=== PATIENT | female | born 1945 | race Caucasian/White ===

== ENCOUNTER → 2016-08-27 | Outpatient (CLI) | payer MEDICARE ==
--- NOTE | 2016-08-28 09:17 | MM ---
Reason for exam: screening (asymptomatic). Last mammogram was performed 1 year and 2 months ago. History: Patient is postmenopausal, has history of other cancer at age 54, and is nulliparous. Benign excisional biopsy of the left breast, 1991. Took estrogen for 18 years beginning at age 43. Physical Findings: A clinical breast exam by your physician is recommended on an annual basis and results should be correlated with mammographic findings. MG Screening Mammo w CAD Bilateral CC and MLO view(s) were taken. Prior study comparison: July 07, 2015, bilateral MG 3d screening mammo w/cad. July 05, 2014, bilateral MG screening mammo w CAD. The breast tissue is heterogeneously dense. This may lower the sensitivity of mammography. Benign calcifications. There is no discrete abnormality. No significant changes when compared with prior studies. ASSESSMENT: Benign, BI-RAD 2 RECOMMENDATION: Routine screening mammogram of both breasts in 1 year.
== END | disposition home or self-care (01) ==
LOC: RADMAMWWP 16:35
PROVIDERS: ATTEND Internal Medicine
DX: Z12.31 Encounter for screening mammogram for malignant neoplasm of breast (principal)

== ENCOUNTER → 2017-09-09 | Outpatient (CLI) | payer MEDICARE ==
--- NOTE | 2017-09-11 09:55 | MM ---
Reason for exam: screening (asymptomatic). Last mammogram was performed 1 year ago. History: Patient is postmenopausal, has history of other cancer at age 54, and is nulliparous. Benign excisional biopsy of the left breast, 1991. Took estrogen for 18 years beginning at age 43. Physical Findings: A clinical breast exam by your physician is recommended on an annual basis and results should be correlated with mammographic findings. MG 3D Screening Mammo W/Cad Bilateral CC and MLO view(s) were taken. Prior study comparison: August 27, 2016, bilateral MG screening mammo w CAD. July 07, 2015, bilateral MG 3d screening mammo w/cad. There are scattered fibroglandular densities. No significant changes when compared with prior studies. ASSESSMENT: Negative, BI-RAD 1 RECOMMENDATION: Routine screening mammogram of both breasts in 1 year.
== END ==
LOC: RADMAMWWP 13:18
PROVIDERS: ATTEND Internal Medicine
DX: Z12.31 Encounter for screening mammogram for malignant neoplasm of breast (principal)
CPT/HCPCS: 77063; 77067

== ENCOUNTER → 2018-08-21 | Outpatient (CLI) | payer MEDICARE ==
--- NOTE | 2018-08-21 10:59 | NM ---
"EXAMINATION TYPE: NM stress cardiolite complete DATE OF EXAM: 08/21/2018 COMPARISON: Prior exam dated 09/12/2014 HISTORY: Chest pain TECHNIQUE: After the intravenous administration of 10.6 mCi Tc 99m Sestamibi - Rest images obtained 45 minutes post injection. The patient exercised using a SUZETTE protocol and 1 minute prior to peak exercise was injected with 25.3 mCi Tc 99m Sestamibi - Stress images obtained 10 minutes post injecti on. FINDINGS: Targeted heart rate was achieved during performance of the study. Review of stress and rest SPECT shara ges demonstrates some mild decreased radio pharmaceutical uptake along the inferior wall left ventric le which is somewhat more reduced on stress as compared to rest imaging. Gated analysis shows normal wall motion with an estimated left ventricular ejection fraction of 71 %. IMPRESSION: Findings suggest some mild stress-induced left ventricular myocardial ischemia limited for wall left ventricle, correlate with echocardiographic studies for elevated ejection fraction A Yellow level critical message alert has been initiated for Bryn Argueta MD via the [employer] | Critical Results System on 08/21/2018 10:57 AM. This message alert has been sent to Bryn thomas MD via the preferences provided by the clinician for the receipt of Radiology Critical Findings. Message ID [id number]."
--- NOTE | 2018-08-21 19:47 | EST ---
EXERCISE STRESS AGE: 73 SEX: Female HT: 61" WT: 135 pounds PROTOCOL: Cardiolite Raf STAGE: II DURATION OF EXERCISE: 3:32 HEART RATE REST: 68 BLOOD PRESSURE REST: 166/75 MAXIMUM HEART RATE ACHIEVED: 135 MAXIMUM BLOOD PRESSURE: 264/91 85% MPHR: 124 100% MPHR: 146 METS: 5.2 INDICATIONS: Chest pain. CLINICAL INFORMATION: Baseline rhythm is a sinus mechanism, rate of 68, normal axis and intervals. Occasional PACs. Baseline blood pressure 166/75 mmHg. Patient exercised on Raf protocol for 3 minutes 32 seconds, achieving a peak rate of 135 beats per minute, which is equal to 92% of maximum predicted heart rate. Peak blood pressure 175/88 mmHg. Test was stopped because of fatigue and severe dyspnea. Electrocardiograph monitoring revealed no evidence of diagnostic ischemic ST deviation. Cardiolite was injected at peak exercise. CONCLUSION: 1. Decreased exercise tolerance with normal electrocardiograph response to exercise. 2. Nuclear images will be reported separately. MMODL / IJN: [id number] /
== END | disposition home or self-care (01) ==
LOC: RADNMMAIN 07:44
PROVIDERS: ATTEND Internal Medicine
DX: R07.9 Chest pain, unspecified (principal)
CPT/HCPCS: 93017; 78452; A9500

== ENCOUNTER → 2018-09-07 | Outpatient (CLI) | payer MEDICARE ==
[2018-09-07 17:12] LABS: HCT 43.3 % (34.0-46.0); HGB 13.9 gm/dL (11.4-16.0); MCH 29.2 pg (25.0-35.0); MCV 91.1 fL (80.0-100.0); Mean Platelet Volume 7.4; Platelet Count 231 k/uL (150-450); RBC 4.76 m/uL (3.80-5.40); RDW 14.5 % (11.5-15.5); WBC 6.2 k/uL (3.8-10.6)
[2018-09-07 17:18] LABS: Potassium 4.4 mmol/L (3.5-5.1)
== END | disposition home or self-care (01) ==
LOC: LABPAT 16:13
PROVIDERS: ATTEND Internal Medicine Cardiovascular Disease
DX: Z01.812 Encounter for preprocedural laboratory examination (principal); R07.2 Precordial pain
CPT/HCPCS: 80051; 82565; 84520; 85027

== ENCOUNTER 2018-09-10 05:56 | Day surgery (SDC) | payer MEDICARE ==
[2018-09-08 10:46] VITALS: BMI 25.6
[~2018-09-10 05:56] MED LIST: ALPRAZolam 0.25 MG TAB PO PRN; ALPRAZolam 0.5 MG TAB PO PRN; NITROGLYCERIN SL TABS 0.4 MG TAB SUBLINGUAL PRN; SODIUM CHLORIDE 0.9% 1,000 ML in EMPTY BAG 1 BAG IV ONE
[2018-09-10] MEDS ORDERED: SODIUM CHLORIDE 0.9% 1,000 ML IV ONE (06:11)
[2018-09-10] MEDS ORDERED: ASPIRIN 325 MG TAB PO ONE (07:00)
[2018-09-10] MEDS ORDERED: ATORVASTATIN 80 MG TAB PO ONE (07:00)
[2018-09-10] MEDS ORDERED: ONDANSETRON 4 MG/2 ML VIAL ONE (07:57)
[2018-09-10] MEDS ORDERED: LIDOCAINE 1% INJ 10MG/ML (20 ML MDV) ONE (08:58)
[2018-09-10] MEDS ORDERED: fentaNYL (PF) 50 MCG/ML 2 ML AMP ONE (08:58)
[2018-09-10] MEDS: MIDAZOLAM (PF) 2 MG/2 ML VIAL IV ONE ×2 (09:20→10:10)
[2018-09-10] MEDS ORDERED: LIDOCAINE 1% INJ 10MG/ML (20 ML MDV) SQ ONE (09:20)
[2018-09-10] MEDS: fentaNYL (PF) 50 MCG/ML 2 ML AMP IV ONE ×2 (09:20→10:21)
--- NOTE | 2018-09-10 10:03 | CC ---
CARDIAC CATHETERIZATION REPORT INDICATION: Unstable angina. REFERRING PHYSICIAN: Dr. Argueta. Patient has chest pain with abnormal stress test showing ischemia in LAD distribution. PROCEDURE NOTE: After obtaining informed consent, left heart catheterization and coronary angiogram were performed via the right femoral artery using standard Tonia catheters. The patient tolerated the procedure well without any obvious immediate complications. Patient received moderate conscious sedation. Total sedation time was 18 minutes. FINDINGS: 1. HEMODYNAMICS: Left ventricular end-diastolic pressure is 16 to 18 mm. There is no significant gradient across the aortic valve. 2. LEFT VENTRICULOGRAM: Left ventriculogram is not performed. 3. ANGIOGRAPHIC DATA: Left Main Coronary Artery: Left main coronary artery is a normal-sized vessel and is free of stenosis. Divides into left anterior descending coronary artery and circumflex coronary artery. Both the left and right coronaries are calcified. Circumflex coronary artery is a nondominant vessel and is free of significant stenosis. LAD shows a 70% stenosis proximal to the origin of the diagonal branch. Diagonal branch itself shows a 70% to 80% stenosis. Right coronary artery is a large dominant vessel, appears calcified, but is free of significant stenosis. CONCLUSIONS: A 70% stenosis involving LAD proximal to the diagonal. The diagonal has a 70% to 80% stenosis. PLAN: Patient will undergo angioplasty of the LAD and diagonal by Dr. Gallardo the on-call electrical fitter. MMLUANNEL / KADENN: [id number] /
[2018-09-10] MEDS ORDERED: fentaNYL (PF) 50 MCG/ML 2 ML AMP IV ONE (10:10)
[2018-09-10] MEDS ORDERED: BIVALIRUDIN BOLUS 250 MG/50 ML IV ONE (10:20)
[2018-09-10] MEDS ORDERED: BIVALIRUDIN 250 MG in SODIUM CHLORIDE 0.9% 50 ML IV ONE (10:21)
[2018-09-10] MEDS ORDERED: NITROGLYCERIN 1000MCG/10ML SYRINGE INTRACORON ONE (10:27)
[2018-09-10] MEDS ORDERED: IOPAMIDOL-370 125ML BTL INJ ONE (10:29)
[2018-09-10] MEDS ORDERED: CLOPIDOGREL 75 MG TAB ONE (10:33)
[2018-09-10] MEDS ORDERED: CLOPIDOGREL 75 MG TAB PO ONE (10:37)
[2018-09-10] MEDS ORDERED: NITROGLYCERIN SL TABS 0.4 MG TAB SUBLINGUAL PRN ×2 (10:39→10:41)
[2018-09-10] MEDS ORDERED: PANTOPRAZOLE 40 MG TABLET PO PRN (10:39)
[2018-09-10] MEDS ORDERED: BACLOFEN 10 MG TAB PO PRN (10:39)
[2018-09-10] MEDS ORDERED: HYDROcodone/APAP 7.5-325MG 1 EACH TAB PO PRN (10:39)
[2018-09-10] MEDS ORDERED: ALBUTEROL NEBULIZED 2.5 MG/3 ML INHALATION PRN (10:39)
[2018-09-10] MEDS ORDERED: ATROPINE SULFATE 0.1 MG/ML 10ML SYRINGE IV PRN (10:41)
[2018-09-10] MEDS ORDERED: ZOLPIDEM 5 MG TAB PO PRN (10:41)
[2018-09-10] MEDS ORDERED: RX INFO: IV CONTRAST WAS GIVEN 1 EACH MISC MISCELLANE PRN (10:41)
[2018-09-10] MEDS ORDERED: MAG HYDROX/AL HYDROX/SIMETH 30 ML CUP PO PRN (10:41)
[2018-09-10] MEDS ORDERED: SODIUM CHLORIDE 0.9% 1,000 ML IV SCH (10:45)
--- NOTE | 2018-09-10 11:15 | PTCA ---
PERCUTANEOUSTRANS CORORONARY ANGIOGRAPHY DATE OF SERVICE: 09/10/2018 PERFORMING PHYSICIAN: Bright Gallardo MD, elastic attacher zigzag. PROCEDURE PERFORMED: Successful stenting of the first diagonal branch of the LAD using 2.5 x 12 mm Xience MARÍA ELENA with an excellent angiographic results and reduction of stenosis from 70% to 0%. INDICATION: This is a 73-year-old female patient who sees Dr. Salmeron in the office as an outpatient who was experiencing chest discomfort and underwent a heart catheterization which revealed severe disease involving the first diagonal branch of the LAD. APPROACH: Right common femoral artery. COMPLICATION: None. LEVEL OF SEDATION: Moderate with sedation length of 20 minutes. PROCEDURE DESCRIPTION: Please refer to diagnostic heart catheterization that was performed by Dr. Salmeron earlier today. Anticoagulation was initiated using Angiomax. Subsequently I did engage the left main using JL4 guide. I did wire the diagonal using a run-through wire. After that I did I did direct stenting of the lesion using 2.5 x 12 mm balloon, which was positioned under fluoroscopy guidance and deployed under 12 atmospheres for 20 seconds. The following angiogram showed good results and the procedure was completed without any complication. POSTPROCEDURE MANAGEMENT: 1. Dual antiplatelet therapy. 2. Risk factors modifications. 3. Follow up with the patient. MMODL / IJN: [id number] /
[2018-09-10 20:40] VITALS: RESP 18
[2018-09-10] MEDS ORDERED: ATORVASTATIN 80 MG TAB PO SCH (21:00)
[2018-09-11] MEDS ORDERED: LEVOTHYROXINE 100 MCG TAB PO SCH (06:30)
[2018-09-11 07:55] VITALS: BP 139/69; PULSE 73; TEMP 98.3
[2018-09-11] MEDS ORDERED: ASPIRIN 81 MG PO SCH (09:00)
[2018-09-11] MEDS ORDERED: ATORVASTATIN 20 MG TAB PO SCH (09:00)
[2018-09-11] MEDS ORDERED: LORATADINE 10 MG TAB PO SCH (09:00)
[2018-09-11] MEDS ORDERED: ISOSORBIDE MONONITRATE ER 30 MG TAB.ER.24H PO SCH (09:00)
[2018-09-11] MEDS ORDERED: CHOLECALCIFEROL 1,000 UNIT TAB PO SCH (09:00)
[2018-09-11] MEDS ORDERED: CLOPIDOGREL 75 MG TAB PO SCH (09:00)
[2018-09-11] MEDS ORDERED: guaiFENesin 600 MG TABLET.ER PO SCH (09:00)
[2018-09-11] MEDS ORDERED: MULTIVITAMINS, THERA 1 EACH TAB PO SCH (09:00)
[2018-09-11] MEDS ORDERED: amLODIPine 5 MG TAB PO SCH (09:00)
[2018-09-11] MEDS ORDERED: [UNRECOGNIZED DRUG - OTHER] PO SCH (09:00)
[2018-09-11] MEDS ORDERED: BIOTIN 1000 MCG PO SCH (09:00)
--- NOTE | 2018-09-11 09:59 | DS ---
DISCHARGE SUMMARY DATE OF ADMISSION: 09/10/2018. DATE OF DISCHARGE: 09/11/2018. FINAL DIAGNOSIS: Unstable angina. PROCEDURES PERFORMED: 1. Left heart catheterization and coronary angiogram. 2. Angioplasty of the diagonal branch. HOSPITAL COURSE: A 73-year-old lady presented to me with symptoms of unstable angina and an abnormal stress test. She underwent cardiac catheterization that revealed a significant lesion within the diagonal branch. There was a moderate stenosis in the LAD. She underwent angioplasty with stent placement of the diagonal lesion. This morning she is doing well. Ambulating well without any problems. Does not have any symptoms. PHYSICAL EXAM: Vital signs are stable. There is no jugular venous distention. Chest exam reveals good air entry bilaterally. Heart exam reveals first and second heart sounds. No gallop. Groin is free of bleeding, bruit, hematoma. Foot pulses are intact. Her labs showed that the creatinine is 1.2, EKGs within normal limits. DISCHARGE MEDICATIONS INCLUDE: 1. Aspirin. 2. Plavix 75 mg daily. 3. Sublingual nitroglycerin on a p.r.n. basis. 4. Amlodipine 5 mg daily along with atorvastatin. FOLLOWUP PLAN: Patient will be followed up in my office in a week's time. MMLUANNEL / KADENN: [id number] /
== END 2018-09-11 11:22 | disposition home or self-care (01) ==
LOC: CATHCVL 05:56 → 3SCARD 10:34 → CATHCVL 09-11 11:22
PROVIDERS: ATTEND Internal Medicine Cardiovascular Disease
DX: I25.110 Atherosclerotic heart disease of native coronary artery with unstable angina pectoris (principal); I25.84 Coronary atherosclerosis due to calcified coronary lesion; I10 Essential (primary) hypertension; Z87.891 Personal history of nicotine dependence; E78.2 Mixed hyperlipidemia; Z82.49 Family history of ischemic heart disease and other diseases of the circulatory system; Z90.49 Acquired absence of other specified parts of digestive tract; M19.90 Unspecified osteoarthritis, unspecified site; Z79.82 Long term (current) use of aspirin; Z79.890 Hormone replacement therapy; Z79.891 Long term (current) use of opiate analgesic; Z79.899 Other long term (current) drug therapy; Z88.0 Allergy status to penicillin
CPT/HCPCS: 94760; 93458; 82565; C9600; C1887; C1769 ×2; C1894; C1760; C1874; J2405; J2001; J3010; J0583; Q9967; J2250

== ENCOUNTER → 2018-09-25 | Outpatient (CLI) | payer MEDICARE ==
--- NOTE | 2018-09-29 12:00 | MM ---
Reason for exam: screening (asymptomatic). Last mammogram was performed 1 year and 1 month ago. History: Patient is postmenopausal, has history of other cancer at age 54, and is nulliparous. Benign excisional biopsy of the left breast, 1991. Took estrogen for 18 years beginning at age 43. MG 3D Screening Mammo W/Cad Bilateral CC and MLO view(s) were taken. Prior study comparison: September 09, 2017, bilateral MG 3d screening mammo w/cad. August 27, 2016, bilateral MG screening mammo w CAD. There are scattered fibroglandular densities. No significant new finding when compared with prior studies. ASSESSMENT: Benign, BI-RAD 2 RECOMMENDATION: Routine screening mammogram of both breasts in 1 year.
== END | disposition home or self-care (01) ==
LOC: RADMAMWWP 14:09
PROVIDERS: ATTEND Internal Medicine
DX: Z12.31 Encounter for screening mammogram for malignant neoplasm of breast (principal)
CPT/HCPCS: 77063; 77067

== ENCOUNTER 2021-07-06 17:07 | Observation (INO) | payer MEDICARE ==
[2021-07-06] MEDS ORDERED: NITROGLYCERIN OINT 1 INCH/GM PACKET TOPICAL STA (17:49)
[2021-07-06 17:52] LABS: Basophils # (A) 0.1 k/uL (0-0.2); Basophils % (A) 1 %; Eosinophils # (A) 0.4 k/uL (0-0.7); Eosinophils % (A) 4 %; HCT 45.7 % (34.0-46.0); HGB 14.8 gm/dL (11.4-16.0); Lymphocytes # (A) 2.4 k/uL (1.0-4.8); Lymphocytes % (A) 29 %; MCH 31.3 pg (25.0-35.0); MCHC 32.4 g/dL (31.0-37.0); MCV 96.8 fL (80.0-100.0); Monocytes # (A) 0.5 k/uL (0-1.0); Monocytes % (A) 6 %; Neutrophils # (A) 4.9 k/uL (1.3-7.7); Neutrophils % (A) 58 %; Platelet Count 224 k/uL (150-450); RBC 4.72 m/uL (3.80-5.40); RDW 14.3 % (11.5-15.5); WBC 8.4 k/uL (3.8-10.6)
[2021-07-06 17:59] LABS: INR 0.9 (<1.2); Partial Thromboplastin Time 24.2 sec (22.0-30.0); Prothrombin Time 10.1 sec (9.0-12.0)
[2021-07-06 18:05] LABS: Albumin 4.1 g/dL (3.5-5.0); Calcium 9.2 mg/dL (8.4-10.2); Magnesium 2.2 mg/dL (1.6-2.3); Potassium 3.8 mmol/L (3.5-5.1); Total Bilirubin 0.6 mg/dL (0.2-1.3); Total Protein 6.7 g/dL (6.3-8.2)
--- NOTE | 2021-07-06 18:25 | ED ---
Chest Pain HPI - General Chief Complaint: Chest Pain Stated Complaint: Chest Pain Time Seen by Provider: 07/06/21 17:10 Source: patient Mode of arrival: ambulatory Limitations: no limitations - History of Present Illness Initial Comments: Amanda is a pleasant 76-year-old female with a known history of coronary artery disease status post stenting in 2019. Patient presents to the ER today as a transfer from [facility] in [place]. Patient presented to the hospital with a complaint of chest pain. Patient states that throughout the night last night she had chest pain that reminded her of her previous heart attack. Pain was in her left chest not associated with diaphoresis or shortness of breath. Pain was not positional. Pain was not relieved by any rest or positioning. Patient was seen at outside hospital and had a normal EKG and negative troponins however given her risk factors was transferred to this hospital for further evaluation. - Related Data Home Medications Medication Instructions Recorded Confirmed RX: Baclofen 10 mg PO TID 04/22/15 07/06/21 amLODIPine/ATORVASTATIN 1 tab PO DAILY 02/11/16 07/06/21 [amLODIPine/ATORVASTATIN 5-20 mg] Nitroglycerin Sl Tabs [Nitrostat] 0.4 mg SUBLINGUAL Q5M PRN 09/08/18 07/06/21 Albuterol Inhaler [Ventolin Hfa 1 - 2 puff INHALATION RT-Q4H PRN 07/06/21 07/06/21 Inhaler] Albuterol Nebulized [Ventolin 2.5 mg INHALATION RT-Q4H PRN 07/06/21 07/06/21 Nebulized] Aspirin EC [Ecotrin Low Dose] 81 mg PO DAILY 07/06/21 07/06/21 Diclofenac Sodium/Misoprostol 1 tab PO DAILY 07/06/21 07/06/21 [Diclofenac-Misoprost 50-0.2 mg] Fluticasone Nasal [place] [Flonase 2 spray EA NOSTRIL DAILY PRN 07/06/21 07/06/21 Nasal [place]] Levothyroxine Sodium [Synthroid] 88 mcg PO DAILY 07/06/21 07/06/21 RX: Cetirizine HCl 10 mg PO DAILY 07/06/21 07/06/21 RX: Omeprazole 20 mg PO DAILY 07/06/21 07/06/21 Allergies Allergy/AdvReac Type Severity Reaction Status Date / Time Penicillins Allergy Itching Verified 07/06/21 18:15 Review of Systems ROS Statement: Those systems with pertinent positive or pertinent negative responses have been documented in the HPI. ROS Other: All systems not noted in ROS Statement are negative. EKG Findings - EKG Comments: EKG Findings:: EKG was obtained due to complaint of chest pain, EKG obtained secondary to reassess 50 rhythm sinus bradycardia, incomplete right bundle- branch noted, no acute ST elevations or depressions no evidence of ischemia or infarction. Past Medical History Past Medical History: Chest Pain / Angina, COPD, Eye Disorder, GERD/Reflux, Hearing Disorder / Deafness, Hyperlipidemia, Hypertension, Myocardial Infarction ([place]), Osteoarthritis (OA), Pneumonia, Respiratory Disorder, Thyroid Disorder Additional Past Medical History / Comment(s): Ephysema, fainting recently. Hx Pneumonia, not recent. Bilateral cataracts. Hard of hearing. Last Myocardial Infarction Date:: 08/17/18 History of Any Multi-Drug Resistant Organisms: None Reported Past Surgical History: Cholecystectomy, Hysterectomy, Orthopedic Surgery Additional Past Surgical History / Comment(s): Left knee surgery. Laser surgery on vaginal cardona for pre-cancerous cells. cardiac cath 09/10/17 stent 2nd diagonal Past Anesthesia/Blood Transfusion Reactions: Motion Sickness, Postoperative Nausea & Vomiting (PONV) Past Psychological History: No Psychological Hx Reported Smoking Status: Never smoker Past Alcohol Use History: Rare Past Drug Use History: None Reported - Past Family History Mother Family Medical History: No Reported History General Exam - General Exam Comments Initial Comments: Physical Exam GENERAL: Patient is well-developed and well-nourished. Patient is nontoxic and well-hydrated and is in no distress. HENT: Normocephalic, Atraumatic. EYES: PERRL, EOMI PULMONARY: Unlabored respirations. CARDIOVASCULAR: RRR Warm and well perfused extremities ABDOMEN: Non-distended SKIN: No rashes or bruising : Deferred NEUROLOGIC: Alert and oriented Normal speech Normal gait MUSCULOSKELETAL: Moving all extremities with no apparent injury PSYCHIATRIC: No SI/HI Limitations: no limitations Course Vital Signs 07/06/21 17:10 Temperature 97.8 F Pulse Rate 62 Respiratory 18 Rate Blood Pressure 180/77 O2 Sat by Pulse 95 Oximetry Chest Pain MDM - [facility] Patient was transferred from outside hospital due to high risk chest pain Patient has hypertension she is pain-free upon arrival here Patient was significantly hypertensive Nitropaste was given considering her previous chest pain and hypertension Hypertension improved with nitro paste Given the patient's risk factors and reports that this pain feels similar to previous heart attack we will plan on placing her in observation, trending troponins and have evaluation by cardiology This plan was discussed with Dr. Quintero who accepts admission Disposition Clinical Impression: Chest pain, HTN (hypertension), CAD (coronary artery disease) Disposition: ADMITTED IP TO THIS HOSP Condition: Stable Is patient prescribed a controlled substance at d/c from ED?: No
[2021-07-07] MEDS: NITROGLYCERIN OINT 1 INCH/GM PACKET TOPICAL SCH ×5 (00:32→20:17)
[2021-07-07 08:37] LABS: Chol/HDL Ratio 2.09 Ratio; LDL Cholesterol,Calculated 19.9 mg/dL (0.0-131.0)
[2021-07-07] MEDS: ASPIRIN 325 MG TAB PO SCH (09:52)
--- NOTE | 2021-07-07 10:14 | P.PN ---
Subjective Progress Note Date: 07/07/21 Principal diagnosis: Chest pain This is a 76-year-old female patient with a past medical history significant for coronary artery disease and prior stenting of the diagonal branch of the LAD in 2019 and known intermediate to severe disease involving the LAD as well as hypertension and dyslipidemia presented to the hospital complaining of chest discomfort. The patient was having a dental procedure. Days ago where she had teeth extraction and since then she has not been feeding well. She has been experiencing intermittent episodes of chest discomfort described as a squeezing sensation in the middle of the chest with no radiation to the arms or neck or shoulders or back and with no associated symptoms of sweating or shortness of breath or dizziness or lightheadedness or any presyncope or syncope. She initially presented into a hospital in her area subsequently she was transferred here for further evaluation. She underwent an EKG which showed sinus rhythm with nonspecific changes inferiorly and also she underwent cardiac enzymes came in to be unremarkable and chest x-ray showed no acute abnormalities. She stated that she has been chest pain-free since she was admitted to the hospital. She stated that the chest discomfort is not exertionally related the same time she is mentioning that the chest discomfort is somewhat similar to what she had when she underwent the coronary stenting. At this point I would advise monitor the patient for additional 24 hours and obtain an echocardiogram with Doppler for further stratification. I will get the patient up and around and if she is symptomatic I would consider proceeding with coronary angiogram but if she is asymptomatic she might benefit from obtaining a stress test in the next 24-48 hours. Objective - Vital Signs Vital signs: Vital Signs Temp 98.3 F 07/07/21 07:00 Pulse 71 07/07/21 07:00 Resp 16 07/07/21 07:00 BP 130/77 07/07/21 07:00 Pulse Ox 94 L 07/07/21 07:00 Intake & Output 07/06/21 07/07/21 07/07/21 18:59 06:59 18:59 Weight 56.699 kg 56.699 kg Other: Voiding Method Toilet # Voids 1 - Constitutional General appearance: Present: no acute distress - Respiratory Respiratory: bilateral: CTA - Cardiovascular Rhythm: regular Heart sounds: normal: S1, S2 - Labs CBC & Chem 7: 07/06/21 17:41 07/06/21 17:41 Labs: Abnormal Lab Results - Last 24 Hours (Table) 07/06/21 07/06/21 Range/Units 17:41 17:41 Chloride 108 H (98-107) mmol/L Creatinine 1.20 H (0.52-1.04) mg/dL Glucose 114 H (74-99) mg/dL Triglycerides 307.00 H (0.00-149.00) mg/dL VLDL Cholesterol, Calc 61.40 H (5.00-40.00) mg/dL HDL Cholesterol 74.70 H (40.00-60.00) mg/dL Assessment and Plan Assessment: Assessment #1 chest discomfort #2 coronary artery disease #3 hypertension #4 dyslipidemia Plan #1 monitor the patient for additional 24 hours #2 obtain an echocardiogram for further stratification #3 further recommendation to follow that.
[2021-07-07] MEDS ORDERED: FLUTICASONE 50MCG/SPRAY NASAL 16GM EA NOSTRIL PRN (11:58)
[2021-07-07] MEDS ORDERED: ALBUTEROL NEBULIZED 2.5 MG/3 ML INHALATION PRN (11:58)
[2021-07-07] MEDS: amLODIPine 5 MG TAB PO SCH (13:00)
[2021-07-07] MEDS: LORATADINE 10 MG TAB PO SCH (13:00)
[2021-07-07] MEDS: BACLOFEN 10 MG TAB PO SCH ×3 (13:00→20:12)
[2021-07-07] MEDS: LEVOTHYROXINE 88 MCG TAB PO SCH (13:00)
--- NOTE | 2021-07-07 15:23 | CA ---
Transthoracic Echo Report Name: Amanda Walker Age: 76 Gender: F : 1945 Exam Date: 07/07/2021 12:48 Exam Location: [facility] Ht (in): 62 Wt (lb): 125 Ordering Physician: Bright Gallardo MD ([id number]) Attending/Referring Phys: Livery Car Driver Brittanie Mas RDCS Procedure CPT: Indications: CP Cardiac Hx: Technical Quality: Fair Contrast 1: Total Dose (mL): Contrast 2: Total Dose (mL): MEASUREMENTS (Male / Female) Normal Values 2D ECHO LV Diastolic Diameter PLAX 3.1 cm 4.2 - 5.9 / 3.9 - 5.3 cm LV Systolic Diameter PLAX 2.3 cm IVS Diastolic Thickness 1.0 cm 0.6 - 1.0 / 0.6 - 0.9 cm LVPW Diastolic Thickness 0.9 cm 0.6 - 1.0 / 0.6 - 0.9 cm LV Relative Wall Thickness 0.6 RV Internal Dim ED PLAX 2.8 cm LA Systolic Diameter LX 2.2 cm 3.0 - 4.0 / 2.7 - 3.8 cm LA Volume 21.5 cm??? 18 - 58 / 22 - 52 cm??? M-MODE Aortic Root Diameter MM 2.8 cm AV Cusp Separation MM 1.7 cm DOPPLER AV Peak Velocity 140.8 cm/s AV Peak Gradient 7.9 mmHg AI Peak Velocity 380.7 cm/s AI Peak Gradient 58.0 mmHg AI Pressure Half Time 1092.3 ms MV Area PHT 1.9 cm??? Mitral E Point Velocity 66.4 cm/s Mitral A Point Velocity 101.1 cm/s Mitral E to A Ratio 0.7 MV Deceleration Time 391.3 ms MV E' Velocity 7.3 cm/s Mitral E to MV E' Ratio 9.1 TR Peak Velocity 219.3 cm/s TR Peak Gradient 19.2 mmHg Right Ventricular Systolic Press 24.2 mmHg FINDINGS Left Ventricle Left ventricular ejection fraction is estimated at 60-65 %. Left ventricular cavity size normal. Left ventricular wall thickness at upper limits of normal. Right Ventricle Normal right ventricular size and function. Right ventricular systolic pressure within normal limits. Right Atrium Normal right atrial size. Left Atrium Normal left atrial size. No evidence for an atrial septal defect. Mitral Valve Mitral valve thickened. Mild mitral annular calcification. Aortic Valve Trileaflet aortic valve. Thickened aortic valve without stenosis. Mild aortic regurgitation. Tricuspid Valve Mild tricuspid regurgitation. Pulmonic Valve Structurally normal pulmonic valve. Pericardium Normal pericardium. Aorta Normal size aortic root and proximal ascending aorta. CONCLUSIONS Normal LVEF. Previewed by: Dr. Bright Gallardo MD (Electronically Signed) Final Date: 07 Jul 2021 15:22
[2021-07-07] MEDS: Acetaminophen-Codeine 300-30mg TAB PO PRN (18:34)
--- NOTE | 2021-07-07 19:35 | HP ---
HISTORY AND PHYSICAL DATE OF SERVICE: 07/07/2021 CHIEF COMPLAINT: Chest pain. HISTORY OF PRESENT ILLNESS: This 76-year-old woman with a past medical history of multiple medical problems, including COPD, history of hypertension and hyperlipidemia, was complaining of chest pain. The patient apparently had chest pain in the anterior part of the chest for the whole night, and currently the patient is complaining of chest pain in the epigastrium. She also reports some feeling of mild dysphagia. The initial troponins are negative. Cardiology saw the patient and is recommending observation and 2D echo. There is no history of any fever, rigor or chills at this time. PAST MEDICAL HISTORY: History of hypertension, hyperlipidemia, COPD, history of CAD. HOME MEDICATIONS: Reviewed. They include amlodipine, omeprazole. Doses and the rest of the medications are reviewed. ALLERGIES: PENICILLIN. FAMILY HISTORY: No history of heart disease or strokes in the family. SOCIAL HISTORY: Previous history of smoking. REVIEW OF SYSTEMS: Fourteen-point review of systems negative except as mentioned earlier. PHYSICAL EXAMINATION: Pulse is 67, blood pressure 132/60, respiration 18. HEENT: Conjunctivae normal. CARDIOVASCULAR: S1, S2 muffled. NECK: No jugular venous distention. RESPIRATION: No rhonchi. No crackles. ABDOMEN: Soft, nontender. NERVOUS SYSTEM: No focal deficit. SKIN: No ulcer, rash, bleeding. JOINTS: No active deforming arthropathy. LABS: Reviewed. Creatinine 1.20. ASSESSMENT: 1. Chest pain; possible unstable angina. 2. Rule out gastroesophageal reflux disease. 3. History of coronary disease with LAD disease. 4. Hypertension. 5. Hyperlipidemia. RECOMMENDATIONS AND DISCUSSION: In this 76-year-old woman who presented with multiple complex medical issues, at this time I recommend to continue current medications. Rule out myocardial infarction. Unstable angina protocol. Closely follow with Cardiology. Patient apparently had a stress test about a year ago. We will continue to monitor. Prognosis guarded. Repeat labs are ordered. See orders for further details. Resume the home medications. MMODL / IJN: [id number] /
[2021-07-07] MEDS: PANTOPRAZOLE 40 MG/10 ML VIAL IVP SCH (20:11)
[2021-07-07] MEDS: ATORVASTATIN 20 MG TAB PO SCH (20:12)
[2021-07-08] MEDS: Acetaminophen-Codeine 300-30mg TAB PO PRN (01:41)
[2021-07-08] MEDS: NITROGLYCERIN OINT 1 INCH/GM PACKET TOPICAL SCH ×4 (05:25→20:36)
[2021-07-08] MEDS: LEVOTHYROXINE 88 MCG TAB PO SCH (05:45)
[2021-07-08] MEDS: amLODIPine 5 MG TAB PO SCH (08:27)
[2021-07-08] MEDS: LORATADINE 10 MG TAB PO SCH (08:27)
[2021-07-08] MEDS: miSOPROStoL 200 MCG TAB PO SCH (08:27)
[2021-07-08] MEDS: ETODOLAC 200 MG CAPSULE PO SCH (08:27)
[2021-07-08] MEDS: BACLOFEN 10 MG TAB PO SCH ×3 (08:27→20:26)
[2021-07-08] MEDS: ASPIRIN 325 MG TAB PO SCH (08:27)
[2021-07-08] MEDS: PANTOPRAZOLE 40 MG/10 ML VIAL IVP SCH ×2 (08:27→20:26)
[2021-07-08] MEDS ORDERED: NON FORMULARY DRUG (Aspirin Ec 81 MG Tablet) PO SCH (09:00)
[2021-07-08 09:07] LABS: Basophils % (A) 1.2 %; Eosinophils # (A) 0.53 X 10*3/uL (0.04-0.35); Eosinophils % (A) 6.5 %; HCT 45.9 % (37.2-46.3); HGB 14.5 g/dL (12.0-15.0); Immature Grans, Automated 0.1 %; Lymphocytes # (A) 2.13 X 10*3/uL (0.90-5.00); Lymphocytes % (A) 25.9 %; MCH 30.5 pg (27.0-32.0); MCHC 31.6 g/dL (32.0-37.0); MCV 96.4 fL (80.0-97.0); Mean Platelet Volume 9.7 fL (9.5-12.2); Monocytes # (A) 0.66 X 10*3/uL (0.20-1.00); NRBC Per 100 WBC 0 /100 WBCS (0.0-0.0); Neutrophils # (A) 4.78 X 10*3/uL (1.80-7.70); Neutrophils % (A) 58.3 %; Platelet Count 229 X 10*3/uL (140-440); RBC 4.76 X 10*6/uL (4.10-5.20); RDW 13.9 % (11.5-14.5); WBC 8.21 X 10*3/uL (4.50-10.00)
[2021-07-08 10:09] LABS: African American GFR (CKD) 41.9 (60.0-200.0); Albumin 4.1 g/dL (3.8-4.9); Albumin/Globulin Ratio 1.95 (1.60-3.17); Anion Gap 11.3 mmol/L (10.00-18.00); Calcium 9.5 mg/dL (8.7-10.3); Carbon Dioxide 25.7 mmol/L (20.0-27.5); Globulin 2.1 g/dL (1.6-3.3); Non-African American GFR(CKD) 36.2 (60.0-200.0); Potassium 4.5 mmol/L (3.5-5.5); Total Bilirubin 0.6 mg/dL (0.30-1.20); Total Protein 6.2 g/dL (6.2-8.2)
--- NOTE | 2021-07-08 11:05 | P.PN ---
Subjective Progress Note Date: 07/08/21 Principal diagnosis: Chest pain The patient is a 76-year-old female patient with CAD and prior stenting of the diagonal as well as hypertension and dyslipidemia was admitted to the hospital with chest discomfort and ruled out for acute coronary event. She underwent an echocardiogram which revealed normal LV function with no significant valvular abnormalities. The patient was seen this morning and she has been chest pain-free for the last 24-48 hours and she would like to go home and have Dr. Salmeron her business excellence manager see her and assess her for severe CAD. She is hemodynamically stable. From a cardiac standpoint of view, the patient can be discharged home. I discussed with her if she needed to stay overnight and have a stenosis as an outpatient but she preferred to go home. Objective - Vital Signs Vital signs: Vital Signs Temp 98.4 F 07/08/21 07:00 Pulse 62 07/08/21 08:00 Resp 17 07/08/21 08:00 BP 104/67 07/08/21 07:00 Pulse Ox 93 L 07/08/21 07:00 Intake & Output 07/07/21 07/08/21 07/08/21 18:59 06:59 18:59 Intake Total 236 400 118 Balance 236 400 118 Intake: Oral 236 400 118 Other: Voiding Method Toilet Toilet # Voids 1 1 - Constitutional General appearance: Present: no acute distress - Respiratory Respiratory: bilateral: diminished - Cardiovascular Rhythm: regular Heart sounds: normal: S1, S2 - Labs CBC & Chem 7: 07/08/21 05:56 07/08/21 05:56 Labs: Abnormal Lab Results - Last 24 Hours (Table) 07/08/21 07/08/21 Range/Units 05:56 05:56 MCHC 31.6 L (32.0-37.0) g/dL Eosinophils # 0.53 H (0.04-0.35) X 10*3/uL Est GFR (CKD-EPI)AfAm 41.9 L (60.0-200.0) Est GFR (CKD-EPI)NonAf 36.2 L (60.0-200.0) BUN/Creatinine Ratio 10.00 L (12.00-20.00) Ratio Glucose 112 H (70-110) mg/dL Assessment and Plan Assessment: Assessment #1 chest discomfort #2 coronary artery disease #3 hypertension #4 dyslipidemia Plan #1 the patient has been chest pain-free The patient can be discharged home
--- NOTE | 2021-07-08 17:31 | US ---
EXAMINATION TYPE: US venous doppler duplex LE DATE OF EXAM: 07/08/2021 5:14 PM COMPARISON: NONE CLINICAL HISTORY: r/o dvts. Elevated D Dimer. R/O DVT. No hx of DVT. SIDE PERFORMED: Bilateral TECHNIQUE: The lower extremity deep venous system is examined utilizing real time linear array sonog heather with graded compression, doppler sonography and color-flow sonography. VESSELS IMAGED: Common Femoral Vein Deep Femoral Vein Greater Saphenous Vein * Femoral Vein Popliteal Vein Small Saphenous Vein * Proximal Calf Veins (* superficial vessels) Right Leg: No evidence of DVT in veins imaged at this time. Left Leg: No evidence of DVT in veins imaged at this time. IMPRESSION: No evidence of deep vein thrombosis in both legs.
--- NOTE | 2021-07-08 18:44 | NM ---
EXAMINATION TYPE: NM pul perfusion DATE OF EXAM: 07/08/2021 COMPARISON: NONE HISTORY: Chest pain Following administration of 5 mCi Tc 99m MAA. Images obtained post injection. FINDINGS: There are numerous subsegmental type perfusion defects in the upper lung casas bilaterally. There is more normal appearance of the lung bases. Exam limited by lack of current chest x-ray. IMPRESSION: Numerous subsegmental perfusion defects in the upper lung casas likely related to extensive airway d isease. There is a low to intermediate probability of pulmonary embolism.
--- NOTE | 2021-07-08 19:18 | XR ---
EXAMINATION TYPE: XR chest 2V DATE OF EXAM: 07/08/2021 COMPARISON: 03/26/2016 HISTORY: Chest pain TECHNIQUE: FINDINGS: Heart and mediastinum are normal. Lungs are clear. Diaphragm is normal. Bony thorax appears normal. IMPRESSION: Normal chest. No change.
[2021-07-08] MEDS ORDERED: HEPARIN SODIUM 1,000 UN/ML (10ML VL) IV PRN (19:39)
[2021-07-08] MEDS ORDERED: HEPARIN SOD,PORK IN 0.45% NACL 25,000 UNIT in 0.45% NACL 1 250ML.BAG IV SCH (20:00)
[2021-07-08] MEDS: ATORVASTATIN 20 MG TAB PO SCH (20:26)
[2021-07-09] MEDS: NITROGLYCERIN OINT 1 INCH/GM PACKET TOPICAL SCH (05:02)
[2021-07-09] MEDS: LEVOTHYROXINE 88 MCG TAB PO SCH (06:00)
[2021-07-09] MEDS: Acetaminophen-Codeine 300-30mg TAB PO PRN (06:06)
[2021-07-09] MEDS ORDERED: ASPIRIN 81 MG PO SCH (09:00)
[2021-07-09] MEDS: amLODIPine 5 MG TAB PO SCH (09:42)
[2021-07-09] MEDS: LORATADINE 10 MG TAB PO SCH (09:42)
[2021-07-09] MEDS: BACLOFEN 10 MG TAB PO SCH (09:42)
[2021-07-09] MEDS: PANTOPRAZOLE 40 MG/10 ML VIAL IVP SCH (09:42)
[2021-07-09] MEDS: miSOPROStoL 200 MCG TAB PO SCH (10:05)
[2021-07-09] MEDS: ETODOLAC 200 MG CAPSULE PO SCH (10:05)
--- NOTE | 2021-07-09 10:28 | P.PN ---
Subjective Progress Note Date: 07/09/21 HISTORY OF PRESENT ILLNESS: 07/07/2021 This is a 76-year-old female patient with a past medical history significant for coronary artery disease and prior stenting of the diagonal branch of the LAD in 2019 and known intermediate to severe disease involving the LAD as well as hypertension and dyslipidemia presented to the hospital complaining of chest discomfort. The patient was having a dental procedure. Days ago where she had teeth extraction and since then she has not been feeding well. She has been experiencing intermittent episodes of chest discomfort described as a squeezing sensation in the middle of the chest with no radiation to the arms or neck or shoulders or back and with no associated symptoms of sweating or shortness of breath or dizziness or lightheadedness or any presyncope or syncope. She initially presented into a hospital in her area subsequently she was transferred here for further evaluation. She underwent an EKG which showed sinus rhythm with nonspecific changes inferiorly and also she underwent cardiac enzymes came in to be unremarkable and chest x-ray showed no acute abnormalities. She stated that she has been chest pain-free since she was admitted to the hospital. She stated that the chest discomfort is not exertionally related the same time she is mentioning that the chest discomfort is somewhat similar to what she had when she underwent the coronary stenting. At this point I would advise monitor the patient for additional 24 hours and obtain an echocardiogram with Doppler for further stratification. I will get the patient up and around and if she is symptomatic I would consider proceeding with coronary angiogram but if she is asymptomatic she might benefit from obtaining a stress test in the next 24-48 hours. 07/08/2021 The patient is a 76-year-old female patient with CAD and prior stenting of the diagonal as well as hypertension and dyslipidemia was admitted to the hospital with chest discomfort and ruled out for acute coronary event. She underwent an echocardiogram which revealed normal LV function with no significant valvular abnormalities. The patient was seen this morning and she has been chest pain-free for the last 24-48 hours and she would like to go home and have Dr. Salmeron her drywall taper helper see her and assess her for severe CAD. She is hemodynamically stable. From a cardiac standpoint of view, the patient can be discharged home. I discussed with her if she needed to stay overnight and have a stenosis as an outpatient but she preferred to go home. 07/09/2021 Patient examined this morning at the bedside. The patient denies any further episodes of chest pain or pressure. She denies shortness of breath. Vital signs are stable. Patient underwent a VQ scan yesterday revealing low to intermediate probability of PE. The patient was started on IV heparin. Echocardiogram completed revealing ejection fraction 60-65% with no wall motion abnormalities noted. PHYSICAL EXAM: VITAL SIGNS: Reviewed. GENERAL: Well-developed in no acute distress. NECK: Supple. No JVD or thyromegaly LUNGS: Respirations even and unlabored. Lungs essentially clear to auscultation bilaterally. HEART: Regular rate and rhythm. S1 and S2 heard. EXTREMITIES: Normal range of motion. No clubbing or cyanosis. Peripheral pulses intact. No lower extremity edema ASSESSMENT: Chest pain, troponins negative 2 Low to intermediate probability of PE per VQ scan Acute kidney injury Coronary artery disease with previous stenting Hypertension PLAN: Continue current cardiac medications Continue IV heparin. Await BMP this morning. If kidney function improves, we will obtain CTA to r/o PE as VQ was not very specific Further recommendations pending patient course Nurse practitioner note has been reviewed by physician. Signing provider agrees with the documented findings, assessment, and plan of care. Objective - Vital Signs Vital signs: Vital Signs Temp 98.2 F 07/09/21 07:00 Pulse 58 L 07/09/21 07:00 Resp 15 07/09/21 07:00 BP 114/66 07/09/21 07:00 Pulse Ox 94 L 07/09/21 07:00 Intake & Output 07/08/21 07/09/21 07/09/21 18:59 06:59 18:59 Intake Total 236 71.442 Balance 236 71.442 Intake: Intake, IV Titration 71.442 Amount Heparin Sod,Pork in 0.45% 71.442 NaCl 25,000 unit In 0.45 % NaCl 1 250ml.bag @ 18 UNITS/KG/HR 10.206 mls/hr IV .Q24H [facility] Rx#: [id number] Oral 236 Other: Voiding Method Toilet Toilet # Voids 3 2 - Labs CBC & Chem 7: 07/08/21 05:56 07/08/21 05:56 Labs: Abnormal Lab Results - Last 24 Hours (Table) 07/08/21 07/09/21 07/09/21 Range/Units 12:21 02:35 08:25 APTT 66.1 H 78.6 H (22.0-30.0) sec D-Dimer 0.76 H (<0.60) mg/L FEU
[2021-07-09 11:58] LABS: African American GFR (CKD) 43.8 (60.0-200.0); Anion Gap 10.4 mmol/L (10.00-18.00); BUN/Creat Ratio 10.22 Ratio (12.00-20.00); Blood Urea Nitrogen 13.8 mg/dL (9.0-27.0); Calcium 9.1 mg/dL (8.7-10.3); Carbon Dioxide 23.6 mmol/L (20.0-27.5); Non-African American GFR(CKD) 37.8 (60.0-200.0); Potassium 4.3 mmol/L (3.5-5.5)
--- NOTE | 2021-07-09 13:39 | P.CNPUL ---
History of Present Illness Consult date: 07/09/21 Requesting physician: Kristen Quintero Chief complaint: Chest pain. History of present illness: Pulmonary consult dated 07/09/2021. 76-year-old female with history of CAD, and COPD. The patient presents to the emergency department on July 06 complaining of chest pain. The patient was in the center of her chest. The patient apparently was brought down to this hospital to be evaluated. Her vice president lending practices here. The patient does not have pain currently. We were consulted for possible pulmonary embolism. She denies any shortness of breath. She denied any nausea vomiting or diaphoresis. Again, she's not having any chest pain currently. She remains on room air, and IV heparin. She had a low to intermediate probability VQ scan. In addition, she had Dopplers of the lower extremities which were negative. In addition, she has gastroesophageal reflux disease, deafness, hyperlipidemia, hypertension, myoca rdial infarction, CAD, osteoarthritis, pneumonia, and hypothyroidism. The patient did smoke previously, but does not smoke currently. She has been diagnosed with COPD. Labs today include a sodium 141, potassium 4.3, chlorides 107, CO2 24, BUN 14, creatinine 1.4. Her d-dimer was very minimally elevated at 0.76. Venous Doppler studies were negative. Pulmonary perfusion scan showed numerous subsegmental perfusion defects in the upper lung casas, likely related to extensive airways disease. The scan was interpreted to be between low to intermediate probability for pulmonary embolism. Review of Systems REVIEW OF SYSTEMS: CONSTITUTIONAL: [Negative.] NEUROLOGIC: [ Negative.] HEENT: [ Negative.] CARDIAC: Chest pain, resolved. PULMONARY: [Negative.] GI: [Negative.] : [Negative.] RHEUMATOLOGIC: [ Negative.] IMMUNOLOGIC: [ Negative.] ENDOCRINE: [Negative. ] DERMATOLOGIC: [Negative.] Past Medical History Past Medical History: Chest Pain / Angina, COPD, Eye Disorder, GERD/Reflux, Hearing Disorder / Deafness, Hyperlipidemia, Hypertension, Myocardial Infarction ([place]), Osteoarthritis ([place]), Pneumonia, Respiratory Disorder, Thyroid Disorder Additional Past Medical History / Comment(s): Ephysema, fainting recently. Hx Pneumonia, not recent. Bilateral cataracts. Hard of hearing. Last Myocardial Infarction Date:: 08/17/18 History of Any Multi-Drug Resistant Organisms: None Reported Past Surgical History: Cholecystectomy, Hysterectomy, Orthopedic Surgery Additional Past Surgical History / Comment(s): Left knee surgery. Laser surgery on vaginal cardona for pre-cancerous cells. cardiac cath 09/10/17 stent 2nd diagonal Past Anesthesia/Blood Transfusion Reactions: Motion Sickness, Postoperative Nausea & Vomiting (PONV) Past Psychological History: No Psychological Hx Reported Smoking Status: Former smoker Past Alcohol Use History: Rare Additional Past Alcohol Use History / Comment(s): Quit smoking 2010, smoked 56 yrs, 1 PPD. Past Drug Use History: None Reported - Past Family History Mother Family Medical History: No Reported History Medications and Allergies Home Medications Medication Instructions Recorded Confirmed Type Baclofen 10 mg PO TID 04/22/15 07/06/21 History amLODIPine/ATORVASTATIN 1 tab PO DAILY 02/11/16 07/06/21 History [amLODIPine/ATORVASTATIN 5-20 MG] Nitroglycerin Sl Tabs [Nitrostat] 0.4 mg SUBLINGUAL Q5M PRN 09/08/18 07/06/21 History Albuterol Inhaler [Ventolin Hfa 1 - 2 puff INHALATION RT-Q4H PRN 07/06/21 07/06/21 History Inhaler] Albuterol Nebulized [Ventolin 2.5 mg INHALATION RT-Q4H PRN 07/06/21 07/06/21 History Nebulized] Aspirin EC [Ecotrin Low Dose] 81 mg PO DAILY 07/06/21 07/06/21 History Cetirizine HCl 10 mg PO DAILY 07/06/21 07/06/21 History Diclofenac Sodium/Misoprostol 1 tab PO DAILY 07/06/21 07/06/21 History [Diclofenac-Misoprost 50-0.2 mg] Fluticasone Nasal [place] [Flonase 2 spray EA NOSTRIL DAILY PRN 07/06/21 07/06/21 History Nasal [place]] Levothyroxine Sodium [Synthroid] 88 mcg PO DAILY 07/06/21 07/06/21 History Omeprazole 20 mg PO BID #60 cap 07/08/21 Rx Allergies Allergy/AdvReac Type Severity Reaction Status Date / Time Penicillins Allergy Itching Verified 07/06/21 18:15 Physical Exam Osteopathic Statement: *. No significant issues noted on an osteopathic structural exam other than those noted in the History and Physical/Consult. Vitals: Vital Signs Temp Pulse Pulse Resp BP BP Pulse Ox 07/09/21 07:00 98.2 F 58 L 15 114/66 94 L 07/09/21 02:13 98.4 F 65 18 136/74 95 07/09/21 02:00 65 18 07/08/21 20:00 65 18 07/08/21 18:55 98.6 F 67 17 114/59 95 07/08/21 15:52 93 L 07/08/21 14:00 69 55 L 12 07/08/21 13:51 97.9 F 55 L 12 128/61 94 L Intake and Output 07/08/21 07/09/21 07/09/21 22:59 06:59 14:59 Intake Total 71.442 Balance 71.442 Intake: Intake, IV Titration 71.442 Amount Heparin Sod,Pork in 0.45% 71.442 NaCl 25,000 unit In 0.45 % NaCl 1 250ml.bag @ 18 UNITS/KG/HR 10.206 mls/hr IV .Q24H [facility] Rx#: [id number] Other: Voiding Method Toilet Toilet # Voids 1 2 No acute distress, oriented 3. HEENT examination is grossly unremarkable. Neck supple. Full range of motion. No adenopathy thyromegaly or neck vein distention. Cardiovascular examination reveals regular rhythm rate. S1-S2 normal. No S3 or S4. No discernible murmur noted. Heart rate 58 bpm. Lungs reveal clear breath sounds. Breath sounds are equal bilaterally. No adventitious lung sounds including wheezes rhonchi or crackles. Saturations are 95% on room air. Abdomen soft bowel sounds are heard. No masses or tenderness. Extremities are intact. No cyanosis clubbing or edema. Skin is without rash or lesion. Neurologic examination is brief but nonfocal. Results - Laboratory Findings CBC and BMP: 07/08/21 05:56 07/09/21 08:25 PT/INR, D-dimer PT 10.1 sec (9.0-12.0) 07/06/21 17:41 INR 0.9 (<1.2) 07/06/21 17:41 D-Dimer 0.76 mg/L FEU (<0.60) H 07/08/21 12:21 Abnormal lab findings: Abnormal Labs 07/06/21 07/06/21 07/08/21 17:41 17:41 05:56 MCHC 31.6 L Eosinophils # 0.53 H APTT D-Dimer Chloride 108 H Creatinine 1.20 H Est GFR (CKD-EPI)AfAm Est GFR (CKD-EPI)NonAf BUN/Creatinine Ratio Glucose 114 H Triglycerides 307.00 H VLDL Cholesterol, Calc 61.40 H HDL Cholesterol 74.70 H 07/08/21 07/08/21 07/09/21 05:56 12:21 02:35 MCHC Eosinophils # APTT 66.1 H D-Dimer 0.76 H Chloride Creatinine Est GFR (CKD-EPI)AfAm 41.9 L Est GFR (CKD-EPI)NonAf 36.2 L BUN/Creatinine Ratio 10.00 L Glucose 112 H Triglycerides VLDL Cholesterol, Calc HDL Cholesterol 07/09/21 07/09/21 08:25 08:25 MCHC Eosinophils # APTT 78.6 H D-Dimer Chloride Creatinine Est GFR (CKD-EPI)AfAm 43.8 L Est GFR (CKD-EPI)NonAf 37.8 L BUN/Creatinine Ratio 10.22 L Glucose Triglycerides VLDL Cholesterol, Calc HDL Cholesterol - Diagnostic Findings Chest x-ray: image reviewed U/S of Legs: image reviewed Assessment and Plan Assessment: Chest pain, resolved, of unclear etiology. It may relate to underlying acid reflux disease. No evidence in my opinion of pulmonary embolism. History of multiple medical problems including COPD, CAD, hypertension, hyperlipidemia, GERD, and hypothyroidism. Plan: Plan dated 07/09/2021. Based on the patient's examination, laboratory findings, and radiologic findings, I don't believe she's had a pulmonary embolism. In my opinion, the heparin can be discontinued, and the patient could be discharged home. Apparently the primary service had scheduled her for a CAT scan of the chest. I don't believe it is necessary but certainly if they want to do it, that's fine by me. Again I don't believe it's necessary. I believe the abnormal perfusion lung scan likely relates to the patient's chronic lung disease from smoking. Time with Patient: Greater than 30
[2021-07-09 14:57] VITALS: BP 137/80; PULSE 73; RESP 16; TEMP 98.4
[2021-07-10] MEDS ORDERED: ENOXAPARIN 30 MG/0.3 ML SYRINGE SQ SCH (09:00)
--- NOTE | 2021-07-10 10:59 | P.DS ---
Providers Date of admission: 07/06/21 19:53 Expected date of discharge: 07/09/21 Attending physician: Kristen Quintero Consults: 07/06/21 19:53 Consult Physician Urgent Consulting Provider: Robby Ramsay Consult Reason/Comments: chest pain, HTN, known cAD Do you want consulting provider notified?: Yes, Notify in am 07/08/21 19:40 Consult Physician Routine Consulting Provider: Eliseo Rothman Consult Reason/Comments: PE Do you want consulting provider notified?: Yes Primary care physician: Physician Nonstaff Hospital Course: Final diagnosis Chest pain, possible unstable angina Rule out gastroesophageal reflux disease Elevated d-dimer, VQ scan shows numerous subsegmental perfusion defects in the upper lung casas likely related to extensive airway disease low to intermediate probability of pulmonary embolism History of coronary artery disease with LAD disease Hypertension Hyperlipidemia hard of hearing Discharge disposition Patient is being discharged in a stable condition with guarded prognosis to home. Patient will follow-up with her primary care provider in [place] in the outpatient setting upon discharge. Patient is to follow-up with her cardiolog ist Dr. Salmeron as well as pulmonary as scheduled. Total time taken is greater than 35 minutes. Hospital course This is a 76-year-old female who was recently admitted with chest pain in the anterior part of her chest and epigastric and also feelings of mild dysphagia. Cardiology following and recommending 2-D echo. D-dimer mildly elevated and VQ scan shows low to moderate possibility of PE and patient's creatinine mildly elevated at 1.4 and recommending CTA. Patient was evaluated by pulmonary and reviewed the VQ scan recommending these are chronic lung findings and will follow-up closely in the outpatient setting with pulmonary. Patient also to follow-up with Dr. Salmeron in the outpatient setting in 1 week. She reports to feeling much better and requesting to go home. Recommending close outpatient follow-up with primary care provider as well and repeat labs to monitor kidney functions. Currently no reports of chest pain, shortness of breath, or palpitations. Patient is afebrile. No reports of nausea or vomiting and patient is tolerating diet. Patient will be discharged home today. On exam vital signs are stable. Cardio S1, S2 are muffled. Respiratory system shows diminished breath sounds at the bases with no wheezing or rhonchi noted. Abdomen is soft and nontender. Nervous system shows no focal deficits. Please refer to medication reconciliation sheet for a list of medications. The impression and plan of care has been dictated by Brynn Means, Nurse Practitioner as directed. Dr. Leon MD I have performed a history and examination and MDM of this patient, discussed the same with the dictator, and agree with the dictator's assessment and plan as written ,documented as a scribe. Based on total visit time, I have performed more than 50% of the visit. Patient Condition at Discharge: Stable Plan - Discharge Summary Discharge Rx Participant: No New Discharge Prescriptions: Continue Baclofen 10 mg PO TID amLODIPine/ATORVASTATIN [amLODIPine/ATORVASTATIN 5-20 MG] 1 tab PO DAILY Nitroglycerin Sl Tabs [Nitrostat] 0.4 mg SUBLINGUAL Q5M PRN PRN Reason: Chest Pain Aspirin EC [Ecotrin Low Dose] 81 mg PO DAILY Albuterol Inhaler [Ventolin Hfa Inhaler] 1 - 2 puff INHALATION RT-Q4H PRN PRN Reason: Shortness Of Breath Albuterol Nebulized [Ventolin Nebulized] 2.5 mg INHALATION RT-Q4H PRN PRN Reason: Shortness Of Breath Cetirizine HCl 10 mg PO DAILY Diclofenac Sodium/Misoprostol [Diclofenac-Misoprost 50-0.2 mg] 1 tab PO DAILY Fluticasone Nasal [place] [Flonase Nasal [place]] 2 spray EA NOSTRIL DAILY PRN PRN Reason: Allergy Symptoms Levothyroxine Sodium [Synthroid] 88 mcg PO DAILY Changed Omeprazole 20 mg PO BID #60 cap Discharge Medication List Baclofen 10 mg PO TID 04/22/15 [History] amLODIPine/ATORVASTATIN [amLODIPine/ATORVASTATIN 5-20 MG] 1 tab PO DAILY 02/11/16 [History] Nitroglycerin Sl Tabs [Nitrostat] 0.4 mg SUBLINGUAL Q5M PRN 09/08/18 [History] Albuterol Inhaler [Ventolin Hfa Inhaler] 1 - 2 puff INHALATION RT-Q4H PRN 07/06/21 [History] Albuterol Nebulized [Ventolin Nebulized] 2.5 mg INHALATION RT-Q4H PRN 07/06/21 [History] Aspirin EC [Ecotrin Low Dose] 81 mg PO DAILY 07/06/21 [History] Cetirizine HCl 10 mg PO DAILY 07/06/21 [History] Diclofenac Sodium/Misoprostol [Diclofenac-Misoprost 50-0.2 mg] 1 tab PO DAILY 07/06/21 [History] Fluticasone Nasal [place] [Flonase Nasal [place]] 2 spray EA NOSTRIL DAILY PRN 07/06/21 [History] Levothyroxine Sodium [Synthroid] 88 mcg PO DAILY 07/06/21 [History] Omeprazole 20 mg PO BID #60 cap 07/08/21 [Rx] Follow up Appointment(s)/Referral(s): John Graham DO [Doctor of Osteopathic Medicine] - 08/06/21 1:30 pm (Patient is also placed on cacellation list to see if there is a sooner appointment.) Nonstaff,Physician [Primary Care Provider] - 1-2 days Gilberto Salmeron MD [STAFF PHYSICIAN] - 07/20/21 10:45 am Ambulatory/Diagnostic Orders: Basic Metabolic Panel [LAB.AMB] Time Frame: 3 Days, Location: None Selected Patient Instructions/Handouts: Chest Pain (DC) Activity/Diet/Wound Care/Special Instructions: diet cardiac act limited till f/u f/u cardio as advised Follow-up with pulmonary in the outpatient setting in 1-2 weeks Discharge Disposition: HOME SELF-CARE
== END 2021-07-09 14:50 | disposition home or self-care (01) ==
LOC: EC 17:07 → 6NMEDSUR 19:53
PROVIDERS: ADMIT Hospitalist; ATTEND Hospitalist
DX: R07.9 Chest pain, unspecified (principal); K21.9 Gastro-esophageal reflux disease without esophagitis; R79.89 Other specified abnormal findings of blood chemistry; I25.10 Atherosclerotic heart disease of native coronary artery without angina pectoris; I10 Essential (primary) hypertension; E78.5 Hyperlipidemia, unspecified; E03.9 Hypothyroidism, unspecified; H91.90 Unspecified hearing loss, unspecified ear; J43.9 Emphysema, unspecified; N17.9 Acute kidney failure, unspecified; R13.10 Dysphagia, unspecified; I25.2 Old myocardial infarction; I08.2 Rheumatic disorders of both aortic and tricuspid valves; M19.90 Unspecified osteoarthritis, unspecified site; H26.9 Unspecified cataract; Z79.82 Long term (current) use of aspirin; Z79.890 Hormone replacement therapy; Z88.0 Allergy status to penicillin; Z90.49 Acquired absence of other specified parts of digestive tract; Z87.01 Personal history of pneumonia (recurrent); Z87.891 Personal history of nicotine dependence; Z90.710 Acquired absence of both cervix and uterus; Z95.5 Presence of coronary angioplasty implant and graft
CPT/HCPCS: 99285; 96376 ×2; 96365; 96375; 36415; 93005; 93306; 85379; 83880; 80061; 80053 ×2; 80048; 83735; 84484 ×2; 85025 ×2; 85610; 85730 ×2; 71046; 93970; 78580; G0378 ×4; A9540; S0191 ×2; C9113 ×3; J1644